=== PATIENT | male | born 1970 | race Caucasian/White ===

== ENCOUNTER 2018-05-02 10:44 | Emergency (ER) | payer OTHER ==
--- NOTE | 2018-05-02 11:16 | EDPHY ---
H & P Smoking Status: Current every day smoker Time Seen by Provider: 05/02/18 10:59 HPI/ROS: CHIEF COMPLAINT: "I think I dislocated my shoulder" HISTORY OF PRESENT ILLNESS: 47-year-old male arrives via private vehicle. Prior history of left shoulder dislocation. 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 No head injury. No paresthesia. Reproducible pain with palpation range of motion. PHYSICAL EXAM (Prior to examination, patient consented to physical exam, hands were washed and my usual and customary physical exam procedures followed) 1) GENERAL: Well-developed, well-nourished, alert and oriented. Answering questions appropriately 2) HEAD: Normocephalic 3) HEENT: sclera anicteric 4) LUNGS: Breathing comfortably. 5) SKIN: Intact 6) MUSCULOSKELETAL: Lateral step-off anterior fullness consistent with dislocation as well as tenderness. Intact skin. No tenting. 7) NEUROLOGIC: No axillary nerve dysfunction.. Brisk pulses distally (Lynn Mariano) Constitutional: Initial Vital Signs Temperature (C) 36.4 C 05/02/18 10:47 Heart Rate 71 05/02/18 10:47 Respiratory Rate 18 05/02/18 10:47 Blood Pressure 145/94 H 05/02/18 10:47 O2 Sat (%) 96 05/02/18 10:47 O2 Delivery Mode Room Air O2 (L/minute) 15 Allergies/Adverse Reactions: No Known Allergies Allergy (Unverified 05/02/18 10:47) Home Medications: Medication Instructions Recorded NK [No Known Home Meds] 05/02/18 MDM/Departure - [facility] Imaging Results: Imaging Impressions Shoulder X-Ray 05/02/18 11:00 Impression: Left glenohumeral dislocation. Images reviewed myself (Lynn Mariano) Procedures: Procedure: Dislocation reduction. Initial attempts at reduction without sedation were unsuccessful. Procedural sedation provided by Dr. Patino. The dislocation of the left shoulder was reduced using traction counter traction technique without complications. Post reduction the patient's neurovascular exam is normal. Post reduction x-ray demonstrates reduction of the joint to the anatomic position. The procedure was performed by myself. Procedure: Splint An upper extremity sling was applied by ER in tube conversion technician. After application of the splint I returned and re-examined the patient. The splint was adequately immobilizing the joint and distal to the splint the patient's circulation and sensation were intact. Patient shows no signs of compartment syndrome. Was given orthopedic precautions. (Lynn Mariano) Medications Given: Discontinued Medications Fentanyl (Sublimaze) 100 mcg IVP EDNOW ONE Stop: 05/02/18 11:37 Last Admin: 05/02/18 11:46 Dose: 100 mcg Sodium Chloride (Ns) 500 mls @ 0 mls/hr IV EDNOW ONE; Wide Open PRN Reason: Protocol Stop: 05/02/18 13:04 Last Admin: 05/02/18 13:03 Dose: 500 mls Midazolam HCl (Versed) 1 mg IVP EDNOW ONE Stop: 05/02/18 11:37 Last Admin: 05/02/18 11:46 Dose: 1 mg Ondansetron HCl (Zofran) 4 mg IVP EDNOW ONE Stop: 05/02/18 13:04 Last Admin: 05/02/18 13:03 Dose: 4 mg Propofol (Diprivan) 100 mg IVP EDNOW ONE Stop: 05/02/18 13:04 Last Admin: 05/02/18 13:03 Dose: 100 mg ED Course/Re-evaluation: The patient was evaluated and managed by the physician's tv production assistant. My cosignature indicates that I reviewed the chart and I agree with the findings and plan of care as documented. I am the secondary supervising physician. Procedure: Procedural sedation. A pre-sedation evaluation was completed on the patient. Patient is an appropriate candidate for procedural sedation. The patient's vital signs and mental status are appropriate. The risks, benefits and alternatives of the sedation were discussed with the patient. The patient is ASA classification E. The patient's Mallampati airway score was 3 and the patient did meet the 3-3- 2 airway measurements. A time out was completed. The patient was sedated with propofol 100 mg IV. The patient was monitored with continuous pulse oximetry, hand thermal cutter and end tidal CO2. There were no complications and no significant hypoxemia. I performed the conscious sedation. I remained at the bedside for the sedation. The total time I spent in the procedural sedation was 15 min. The patient was examined after the procedural sedation and has returned to their pre-sedation baseline with normal vital signs and a normal examination. ( Fior Patino Raquel) - Depart Disposition: Home, Routine, Self-Care Clinical Impression: Dislocation of left shoulder joint Condition: Good Instructions: Shoulder Dislocation (ED) Additional Instructions: Return to the ER immediately if you experience discoloration, have worsening pain, numbness, tingling, or any other symptoms that concern you. If you received x-rays in the emergency department today, be advised, that ligamentous , tendon, muscular, and other non-bony injury cannot be fully ruled out. Try to keep your affected extremity elevated above the level of your chest, and keep cold packs on the affected area, for the next 48 hours. Stand Alone Forms: Work Comp Follow Up Referrals: Arnoldo Pitts MD [Medical Doctor] - As per Instructions
[2018-05-02] MEDS ORDERED: MIDAZOLAM 2 MG/2 ML VIAL IVP ONE (11:36)
[2018-05-02] MEDS ORDERED: fentaNYL 100 MCG/2 ML INJ IVP ONE (11:36)
[2018-05-02] MEDS ORDERED: PROPOFOL 200 MG/20 ML VIAL ONE (12:57)
[2018-05-02] MEDS ORDERED: ONDANSETRON 4 MG/2 ML VIAL ONE (13:00)
[2018-05-02] MEDS ORDERED: PROPOFOL 200 MG/20 ML VIAL IVP ONE (13:03)
[2018-05-02] MEDS ORDERED: NS 500 ML IV ONE (13:03)
[2018-05-02] MEDS ORDERED: ONDANSETRON 4 MG/2 ML VIAL IVP ONE (13:03)
[2018-05-02 13:35] VITALS: BP 111/72
== END 2018-05-02 13:33 | disposition home or self-care (01) ==
PROC: 0RSKXZZ Reposition Left Shoulder Joint, External Approach (ICD-10-PCS; principal; 2018-05-02)
DX: S43.005A Unspecified dislocation of left shoulder joint, initial encounter (principal); W00.0XXA Fall on same level due to ice and snow, initial encounter; Y92.513 Shop (commercial) as the place of occurrence of the external cause; Y93.89 Activity, other specified; Y99.0 Civilian activity done for income or pay
CPT/HCPCS: 96374; J2250; J2405; J2704; J3010; L3980